=== PATIENT | female | born 1950 | race Caucasian/White ===

== ENCOUNTER 2017-10-28 05:30 | Day surgery (SDC) | payer OTHER ==
[~2017-10-28 05:30] MED LIST: ATENOLOL25 MG PO
[2017-10-28] MEDS ORDERED: PERCOCET 5-3251 EACH PO (08:55)
== END 2017-10-28 10:20 | disposition home or self-care (01) ==
LOC: CIR.AMB 05:30
DX: D35.1 Benign neoplasm of parathyroid gland (principal); E21.0 Primary hyperparathyroidism